=== PATIENT | female | born 1955 | race Caucasian/White ===

== ENCOUNTER 2025-05-27 10:14 | Outpatient (CLI) | payer MEDICARE, BC, SELFPAY | END 2025-05-27 10:15 | disposition home or self-care (01) | LOC: NFLDREF 05-29 16:11 | PROVIDERS: PCP Student in an Organized Health Care Education/Training Program; Referring Provider Student in an Organized Health Care Education/Training Program | DX: R35.0 Frequency of micturition (principal); N39.0 Urinary tract infection, site not specified | CPT/HCPCS: 87086 ==